=== PATIENT | male | born 1990 | race Two or more races ===

== ENCOUNTER 2017-09-14 23:45 | Emergency (ER) | payer MEDICAID ==
[~2017-09-14] VITALS: Ht 185.4 cm; Wt 167.8 kg
[2017-09-15 00:27] LABS: Basophils # (auto) 0.1 uL; Basophils % (auto) 0.6 % (0.0-2.0); Eosinophils # (auto) 0 uL; Eosinophils % (auto) 0.2 % (0.0-7.0); Hematocrit 44.9 % (41.0-53.0); Hemoglobin 15.3 g/dL (13.5-17.5); Lymphocytes # (auto) 2.4 uL; Mean Corpuscular Hgb Conc. 34.1 g/dL (32.0-36.0); Mean Corpuscular Volume 85.1 fL (80.0-100.0); Monocytes # (auto) 0.6 uL; Monocytes % (auto) 6.2 % (0.0-12.0); Neutrophils # (auto) 7.3 uL; Nucleated Red Blood Cells % 0.1 %; Platelet Count (auto) 210 10^3/uL (140-450); Red Blood Cells 5.28 10^6/uL (4.5-5.90); Red Cell Distribution Width 13.8 % (11.8-14.3); White Blood Cell 10.4 10^3/uL (4.4-10.8)
[2017-09-15 00:48] LABS: Alanine Aminotransferase 86 U/L (16-61); Anion Gap 11 (5-15); Aspartate Aminotransferase 39 U/L (15-37); BUN/Creatinine Ratio 16.1; Blood Urea Nitrogen 14 mg/dL (7-18); Calcium 9.2 mg/dL (8.5-10.1); Carbon Dioxide 26 mmol/L (21-32); Chloride 104 mmol/L (98-107); GFR African American 138 mL/min; GFR Non-African American 114 mL/min; Glucose 101 mg/dL (74-106); Magnesium 2.2 mg/dL (1.6-2.6); Potassium 4.5 mmol/L (3.5-5.1); Sodium 141 mmol/L (136-145)
[2017-09-15 00:53] LABS: Alkaline Phosphatase 72 U/L (45-117); Bilirubin, Total 0.7 mg/dL (0.2-1.0); Total Protein 8.3 g/dL (6.4-8.2)
[2017-09-15 04:05] LABS: Urine Bacteria None Seen /hpf (None Seen)
[2017-09-15 04:29] LABS: Urine Blood Negative /uL (Negative); Urine Specific Gravity 1.032 (1.001-1.035); Urine WBC 4 /hpf (0 - 3)
[2017-09-15 04:30] LABS: Urine Hyaline Cast F /lpf (0 - 2); Urine Mucus FEW (None Seen)
[2017-09-15 04:44] LABS: Alcohol, Urine < 3.0 mg/dL (0-5); Amphetamine Screen, Urine NEGATIVE (NEGATIVE); Barbiturate Scree,Urine NEGATIVE (NEGATIVE); Benzodiazephine Screen, Urine NEGATIVE (NEGATIVE); Cannabinoid Screen, Urine POSITIVE (NEGATIVE); Cocaine Screen, Urine NEGATIVE (NEGATIVE); Opiate Scree,Urine NEGATIVE (NEGATIVE); Phencyclidine Screen, Urine NEGATIVE (NEGATIVE)
[2017-09-15 06:30] VITALS: BP 149/87
[2017-09-15] MEDS ORDERED: SODIUM CHLORIDE 0.9% 1,000 ML IV ONE (07:05)
[2017-09-15] MEDS ORDERED: LORazepam 0.5 MG TAB PO ONE (07:15)
== END 2017-09-15 08:15 | disposition home or self-care (01) ==
LOC: ER 23:45
DX: R00.2 Palpitations (principal); F12.90 Cannabis use, unspecified, uncomplicated
CPT/HCPCS: 36415; 71046; 80053; 80307; 81001; 83735; 84484; 85025; 93005

== ENCOUNTER 2024-06-08 18:50 | Emergency (ER) | payer MEDICAID ==
[~2024-06-08] VITALS: Ht 182.9 cm; Wt 145.4 kg
[2024-06-08 18:53] VITALS: BP 51/99; PULSE 108; RESP 20; O2SAT 98
== END 2024-06-08 21:32 | disposition left against medical advice (07) ==
LOC: EDBD 18:50 → ER 18:55
DX: F41.9 Anxiety disorder, unspecified (principal); R12 Heartburn; M54.59 Other low back pain; Z53.21 Procedure and treatment not carried out due to patient leaving prior to being seen by health care provider